=== PATIENT | male | born 1975 | race Caucasian/White ===

== ENCOUNTER 2019-02-05 21:25 | Emergency (ER) | payer SELFPAY ==
[2019-02-05] MEDS ORDERED: Acetaminophen 325 MG TAB ONE (22:04)
== END 2019-02-05 23:36 | disposition home or self-care (01) ==
LOC: NAV ERS 21:25
DX: Z02.89 Encounter for other administrative examinations (principal); S05.41XA Penetrating wound of orbit with or without foreign body, right eye, initial encounter; F32.9 Major depressive disorder, single episode, unspecified; F17.200 Nicotine dependence, unspecified, uncomplicated; V28.0XXA Motorcycle driver injured in noncollision transport accident in nontraffic accident, initial encounter
CPT/HCPCS: 99283